=== PATIENT | female | born 1930 | race Caucasian/White ===

== ENCOUNTER → 2016-12-26 | Outpatient (CLI) | payer MEDICARE ==
[~2016-12-26] MED LIST: CITALOPRAM HBR10 MG PO; HCTZ PO; LISINOPRIL20 MG PO; LISINOPRIL40 MG PO; LOW DOSE ASPIRI81 MG PO; MELATIN3 MG PO; SIMVASTATIN20 M1 PO; TOPROL XL 50MG50 MG PO; ULTRAM50 M1 PO
== END ==
LOC: RAD 08:25
DX: M25.511 Pain in right shoulder (principal)

== ENCOUNTER → 2017-02-23 | Outpatient (CLI) | payer MEDICARE | LOC: RAD 16:22 | DX: R05 Cough (principal) ==

== ENCOUNTER → 2017-03-20 | Outpatient (CLI) | payer MEDICARE ==
[2016-04-20 12:09] VITALS: BP 125/74
== END ==
LOC: LAB 13:14
DX: I49.9 Cardiac arrhythmia, unspecified (principal); I47.1 Supraventricular tachycardia

== ENCOUNTER → 2017-04-26 | Outpatient (CLI) | payer MEDICARE ==
[2016-04-20 12:09] VITALS: BP 125/74
== END ==
LOC: CARDREHAB 07:15
DX: I48.3 Typical atrial flutter (principal); Z87.891 Personal history of nicotine dependence; I10 Essential (primary) hypertension; R07.9 Chest pain, unspecified; I25.2 Old myocardial infarction; Z95.5 Presence of coronary angioplasty implant and graft; E78.5 Hyperlipidemia, unspecified; E78.00 Pure hypercholesterolemia, unspecified
CPT/HCPCS: A9500

== ENCOUNTER → 2017-07-16 | Outpatient (CLI) | payer MEDICARE ==
[2016-04-20 12:09] VITALS: BP 125/74
== END ==
LOC: LAB 13:02
DX: I73.9 Peripheral vascular disease, unspecified (principal)

== ENCOUNTER → 2017-07-23 | Outpatient (CLI) | payer MEDICARE ==
[2016-04-20 12:09] VITALS: BP 125/74
== END ==
LOC: RAD 10:40
DX: I73.9 Peripheral vascular disease, unspecified (principal); I77.9 Disorder of arteries and arterioles, unspecified; I71.9 Aortic aneurysm of unspecified site, without rupture
CPT/HCPCS: Q9967

== ENCOUNTER → 2018-10-24 | Outpatient (CLI) | payer MEDICARE ==
[2016-04-20 12:09] VITALS: BP 125/74
== END ==
LOC: RAD 08:47
DX: Z13.89 Encounter for screening for other disorder (principal); R22.42 Localized swelling, mass and lump, left lower limb

== ENCOUNTER → 2018-10-31 | Outpatient (CLI) | payer MEDICARE ==
[2016-04-20 12:09] VITALS: BP 125/74
[2018-10-31 11:57] LABS: CALCIUM 8.4 mg/dL (8.4-10.2)
== END ==
LOC: LAB 09:54
PROVIDERS: Family Medicine
DX: R60.0 Localized edema (principal)

== ENCOUNTER → 2019-09-17 | Outpatient (CLI) | payer MEDICARE ==
[2016-04-20 12:09] VITALS: BP 125/74
[2019-09-17 12:55] LABS: EOS # 0.2 (0.04-0.40); HEMATOCRIT 39.9 % (37.0-47.0); HEMOGLOBIN 12.7 g/dL (12.5-16.0); LYMPH# 1.3 (1.50-4.00); MEAN CELL VOLUME 94 fl (78-100); MEAN CORPUSCULAR HEMOGLOBIN 30 pg (27-31); MEAN CORPUSCULAR HGB CONC 32 g/dL (33-37); MEAN PLATELET VOLUME 9.1 fl (7.4-10.4); MONO # 0.5 (0.20-0.80); NEU # 3.3 (1.40-6.50); PLATELET COUNT 337 K/mm3 (130-400); RED BLOOD COUNT 4.23 M/mm3 (4.10-5.30); RED CELL DISTRIBUTION WIDTH 12.8 % (11.5-14.5); WHITE BLOOD COUNT 5.3 K/mm3 (4.8-10.8)
[2019-09-17 12:57] LABS: ALBUMIN 3.7 g/dL (3.4-4.8); POTASSIUM 4.2 mmol/L (3.5-5.1)
[2019-09-17 13:00] LABS: TOTAL PROTEIN 6.6 g/dL (6.2-8.1)
[2019-09-17 13:26] LABS: TOTAL BILIRUBIN 0.4 mg/dL (0.2-1.2)
== END ==
LOC: LAB 12:39 → RAD 12:39
PROVIDERS: Nurse Practitioner Family
DX: I71.4 Abdominal aortic aneurysm, without rupture (principal); I70.0 Atherosclerosis of aorta; I70.8 Atherosclerosis of other arteries; G45.9 Transient cerebral ischemic attack, unspecified; K57.30 Diverticulosis of large intestine without perforation or abscess without bleeding; E27.9 Disorder of adrenal gland, unspecified; S30.1XXA Contusion of abdominal wall, initial encounter; Z90.49 Acquired absence of other specified parts of digestive tract
CPT/HCPCS: Q9967

== ENCOUNTER → 2019-11-09 | Outpatient (CLI) | payer MEDICARE ==
[2016-04-20 12:09] VITALS: BP 125/74
== END ==
LOC: RAD 14:58
DX: D35.02 Benign neoplasm of left adrenal gland (principal); D35.01 Benign neoplasm of right adrenal gland; I71.4 Abdominal aortic aneurysm, without rupture
CPT/HCPCS: Q9967

== ENCOUNTER → 2020-09-16 | Outpatient (CLI) | payer MEDICARE ==
[2016-04-20 12:09] VITALS: BP 125/74
== END ==
LOC: LAB 11:55
DX: R19.7 Diarrhea, unspecified (principal)

== ENCOUNTER → 2020-09-22 | Day surgery (SDC) | payer MEDICARE ==
[2016-04-20 12:09] VITALS: BP 125/74
== END ==
LOC: MSO 07:22
DX: D12.8 Benign neoplasm of rectum (principal); Z88.1 Allergy status to other antibiotic agents; Z88.8 Allergy status to other drugs, medicaments and biological substances; Z88.0 Allergy status to penicillin; Z88.2 Allergy status to sulfonamides; Z79.82 Long term (current) use of aspirin; E78.00 Pure hypercholesterolemia, unspecified; I25.10 Atherosclerotic heart disease of native coronary artery without angina pectoris; J44.9 Chronic obstructive pulmonary disease, unspecified; I73.9 Peripheral vascular disease, unspecified; M19.90 Unspecified osteoarthritis, unspecified site; I50.9 Heart failure, unspecified; E78.5 Hyperlipidemia, unspecified; Z86.73 Personal history of transient ischemic attack (TIA), and cerebral infarction without residual deficits; D32.9 Benign neoplasm of meninges, unspecified; Z90.710 Acquired absence of both cervix and uterus; Z98.61 Coronary angioplasty status
CPT/HCPCS: 00811; J2704; J7120